=== PATIENT | male | born 1950 | race American Indian/Alaskan Native ===

== ENCOUNTER 2018-11-20 05:45 | Observation (INO) | payer MEDICARE, OTHER ==
--- NOTE | 2018-11-15 10:40 | Anesthesia Consultation ---
Anesthesia Consult and Med Hx Date of service: 11/20/18 - Airway Anesthetic Teeth Evaluation: Good ROM Head & Neck: Adequate Mental/Hyoid Distance: Adequate Mallampati Class: Class II Intubation Access Assessment: Good - Pre-Operative Health Status ASA Pre-Surgery Classification: ASA2 Proposed Anesthetic Plan: General - Pulmonary Hx Smoking: No Hx Sleep Apnea: No (DEANNE PRE SCREEN HIGH RISK) - Cardiovascular System Hx Hypertension: Yes (X 5 YRS) Hx Coronary Artery Disease: No (Had ETT 2018-OK per pt) - Central Nervous System Hx Back Pain: Yes (NECK PAIN. Had ACDF and laser spine surgery) - Endocrine Hx Renal Disease: Yes (Has one intraabdominal kidney) Hx End Stage Renal Disease: No - Other Systems Hx Cancer: Yes (HX Prostate cancer-had seeds)
[2018-11-15 10:42] LABS: Basophils # (Auto) 0.1 K/mm3 (0.0-0.1); Basophils % (Auto) 0.9 % (0.0-1.8); Eosinophils # (Auto) 0.2 K/mm3 (0.0-0.4); Eosinophils % (Auto) 3.3 % (0.0-4.3); Hematocrit 38.7 % (35.5-45.6); Lymphocytes # (Auto) 1.4 K/mm3 (1.2-5.4); Lymphocytes % (Auto) 23.3 % (13.4-35.0); Mean Corpuscular HGB Conc 34 % (32-34); Mean Corpuscular Volume 90 fl (84-94); Monocytes # (Auto) 0.6 K/mm3 (0.0-0.8); Platelet Count 222 K/mm3 (140-440); Red Blood Count 4.29 M/mm3 (3.65-5.03); Red Cell Distribution Width 15.8 % (13.2-15.2)
[2018-11-15 10:56] LABS: Alanine Aminotransferase 8 units/L (7-56); Albumin 4.1 g/dL (3.9-5); BUN/Creatinine Ratio 14; Blood Urea Nitrogen 11 mg/dL (9-20); Calcium 9.6 mg/dL (8.4-10.2); Hemolysis Index 10
[~2018-11-20 05:45] MED LIST: GENTAMICIN/NS 80 MG/100 ML 100 ML IV SCH; LACTATED RINGERS 1,000 ML IV SCH; MARCAINE 0.5% INFILTRATI ONE; NACL 0.9% IR ONE; NACL 0.9% IV ONE; NEOSPORIN GU IR ONE; VANCOMYCIN/NS 1 GM/250 ML 1 GM/250 ML BAG IV SCH
[2018-11-20] MEDS ORDERED: VERSED IV NR (06:00)
[2018-11-20] MEDS ORDERED: NEURONTIN PO NR (06:00)
[2018-11-20] MEDS ORDERED: NACL BACTERIOSTATIC INFILTRATI ONE (06:30)
[2018-11-20] MEDS ORDERED: ZOFRAN ONE (07:00)
[2018-11-20] MEDS ORDERED: MARCAINE 0.5% INFILTRATI ONE ×2 (07:14→08:07)
[2018-11-20] MEDS ORDERED: NEOSPORIN GU IR ONE ×2 (07:14→08:07)
[2018-11-20] MEDS ORDERED: NACL 0.9% 50 ML ONE (07:14)
[2018-11-20] MEDS ORDERED: DIPRIVAN 10 MG/ML IV ONE ×2 (07:28→08:21)
[2018-11-20] MEDS ORDERED: SUBLIMAZE ONE (07:28)
--- NOTE | 2018-11-20 07:44 | Anesthesia Day of Surgery ---
Anesthesia Day of Surgery - Day of Surgery Patient Examined: Yes Patient H&P Reviewed: Yes Patient is NPO: Yes
[2018-11-20] MEDS ORDERED: NACL 0.9% IR ONE (08:07)
[2018-11-20] MEDS ORDERED: NACL 0.9% IV ONE (08:07)
[2018-11-20] MEDS ORDERED: ZOFRAN IV PRN (10:03)
[2018-11-20] MEDS ORDERED: MORPHINE IV PRN (10:03)
[2018-11-20] MEDS ORDERED: NARCAN 0.4 MG/1 ML IV PRN (10:03)
--- NOTE | 2018-11-20 10:03 | Short Stay Summary ---
Short Stay Documentation Date of service: 11/20/18 - History H&P: obtained from office - Allergies and Medications Current Medications: Allergies Penicillins Allergy (Verified 11/14/18 14:46) Rash, JOINT PAIN Home Medications Medication Instructions Recorded Confirmed Last Taken Type Cholecalciferol (Vitamin D3) 2,000 unit PO DAILY 11/14/18 11/14/18 11/19/18 History [Vitamin D3 2,000 UNIT CHEW TAB] Cyanocobalamin (Vitamin B-12) 2,500 mcg PO DAILY 11/14/18 11/14/18 11/19/18 History [Vitamin B12] Ibuprofen [Motrin] 600 mg PO Q8H PRN 11/14/18 11/20/18 3 Weeks Ago History ~10/30/18 amLODIPine [Norvasc] 10 mg PO DAILY 11/14/18 11/20/18 11/20/18 05:00 History Active Medications Celecoxib (Celebrex) 200 mg PO PREOP NR Stop: 11/20/18 23:59 Last Admin: 11/20/18 07:01 Dose: 200 mg Documented by: Gabapentin (Neurontin) 300 mg PO PREOP NR Stop: 11/20/18 23:59 Last Admin: 11/20/18 07:01 Dose: 300 mg Documented by: Hydromorphone HCl (Dilaudid) 0.5 mg IV Q10MIN PRN PRN Reason: Pain , Severe (7-10) Stop: 11/20/18 16:00 Gentamicin Sulfate/Sodium Chloride (Gentamicin/Ns 80 Mg/100 Ml) 100 mls @ 200 mls/hr IV PREOP AIDAN Lactated Ringer's (Lactated Ringers) 1,000 mls @ 100 mls/hr IV DIRECT AIDAN Last Admin: 11/20/18 06:55 Dose: 100 mls/hr Documented by: Midazolam HCl (Versed) 2 mg IV PREOP NR Stop: 11/20/18 23:59 Last Admin: 11/20/18 07:01 Dose: 2 mg Documented by: - Brief post op/procedure progress note Date of procedure: 11/20/18 Pre-op diagnosis: ed Post-op diagnosis: same Procedure: ipp (21 4cm RTE---ams cx) / pharmacologic injection / scrotaplasty Anesthesia: GETA Surgeon: DONELL TOVAR Estimated blood loss: minimal Pathology: list (scrotal skin) Specimen disposition: to lab Condition: stable - Hospital course Hospital course: norco, bactrim, post op infoo on chart at bedside wrap & robert removed home after voids - Disposition Condition at discharge: Stable Short Stay Discharge Plan Follow up with: [facility] [Primary Care Provider] - 7 Days
[2018-11-20] MEDS: DILAUDID IV PRN ×2 (10:05→10:26)
--- NOTE | 2018-11-20 11:34 | Post Anesthesia Evaluation ---
- Post Anesthesia Evaluation Patient Participated: Yes Airway Patent: Yes Stable Respiratory Function: Yes Nausea/Vomiting: No Temp > 96.8F: Yes Pain Manageable: Yes Adequeate Hydration: Yes Anesthesia Complications: No
--- NOTE | 2018-11-20 13:25 | Consultation ---
History of Present Illness - Reason for Consult Consult date: 11/20/18 hypertension Requesting physician: DONELL FINCH - History of Present Illness Patient is 68 yo with hypertension,erectile dysfunction. He had penile implant done today 11/20/[address] Finch. The hospitalist service has been consulted for management of hypertension. Currently only complains of mild discomfort at surgical site. No chest pain, no shortness of breath. His primary care Physician does not come to this hospital Past History Past Medical History: hypertension Past Surgical History: Other (Lasar spinal surgery) Social history: , full code, other (Alcohol occasionally). denies: smoking Family history: diabetes Medications and Allergies Allergies Allergy/AdvReac Type Severity Reaction Status Date / Time Penicillins Allergy Rash, Verified 11/14/18 14:46 JOINT PAIN Home Medications Medication Instructions Recorded Confirmed Last Taken Type Cholecalciferol (Vitamin D3) 2,000 unit PO DAILY 11/14/18 11/14/18 11/19/18 History [Vitamin D3 2,000 UNIT CHEW TAB] Cyanocobalamin (Vitamin B-12) 2,500 mcg PO DAILY 11/14/18 11/14/18 11/19/18 History [Vitamin B12] Ibuprofen [Motrin] 600 mg PO Q8H PRN 11/14/18 11/20/18 3 Weeks Ago History ~10/30/18 amLODIPine [Norvasc] 10 mg PO DAILY 11/14/18 11/20/18 11/20/18 05:00 History Active Meds: Active Medications Acetaminophen/Hydrocodone Bitart ([place] 5/325) 2 each PO Q6H PRN PRN Reason: Pain, Moderate (4-6) Amlodipine Besylate (Norvasc) 10 mg PO DAILY AIDAN Celecoxib (Celebrex) 200 mg PO PREOP NR Stop: 11/20/18 23:59 Last Admin: 11/20/18 07:01 Dose: 200 mg Documented by: Cholecalciferol (Vitamin D3) 2,000 unit PO DAILY AIDAN Cyanocobalamin (Vitamin B-12) 2,500 mcg PO QDAY AIDAN Gabapentin (Neurontin) 300 mg PO PREOP NR Stop: 11/20/18 23:59 Last Admin: 11/20/18 07:01 Dose: 300 mg Documented by: Hydromorphone HCl (Dilaudid) 0.5 mg IV Q10MIN PRN PRN Reason: Pain , Severe (7-10) Stop: 11/20/18 16:00 Last Admin: 11/20/18 10:26 Dose: 0.5 mg Documented by: Gentamicin Sulfate/Sodium Chloride (Gentamicin/Ns 80 Mg/100 Ml) 100 mls @ 200 mls/hr IV PREOP AIDAN Lactated Ringer's (Lactated Ringers) 1,000 mls @ 100 mls/hr IV DIRECT AIDAN Last Admin: 11/20/18 06:55 Dose: 100 mls/hr Documented by: Sodium Chloride (Nacl 0.45% 1000 Ml) 1,000 mls @ 100 mls/hr IV DIRECT AIDAN Vancomycin HCl (Vancomycin/Ns 1 Gm/250 Ml) 1 gm in 250 mls @ 167.007 mls/hr IV Q12H AIDAN Stop: 11/20/18 20:30 Midazolam HCl (Versed) 2 mg IV PREOP NR Stop: 11/20/18 23:59 Last Admin: 11/20/18 07:01 Dose: 2 mg Documented by: Morphine Sulfate (Morphine) 2 mg IV Q4H PRN PRN Reason: Pain, Moderate (4-6) Naloxone HCl (Narcan 0.4 Mg/1 Ml) 0.1 mg IV Q2MIN PRN PRN Reason: Res Rate </= 8 or 02 SAT < 92% Ondansetron HCl (Zofran) 4 mg IV Q8H PRN PRN Reason: N/V unrelieved by Reglan Review of Systems All systems: negative (No fever, No chest pain, No SOB. All other systems reviewed and are negative) Exam - Physical Exam Narrative exam: Gen: Not in acute distress, lying in bed HEENT: Normocephalic, atraumatic Neck: supple, no JVD Heart: S1 and S2 reg, no murmurs, rubs or gallop Lungs: Clear to auscultation, no wheeze Abd: soft, non tender, non distended, normal BS, Ext: No edema, no clubbing, no cyanosis Neuro: Awake,alert, Oriented X 3. No focal neuro signs : Dressing over penis Psych: normal mood - Constitutional Vitals: Temp Pulse Resp BP Pulse Ox 97.8 F 67 14 150/81 97 11/20/18 11:08 11/20/18 11:08 11/20/18 11:08 11/20/18 11:08 11/20/18 11:08 Results - Labs CBC & Chem 7: 11/15/18 10:15 11/15/18 10:15 Assessment and Plan Erectile dysfunction s/p penile implant today 11/20/[address] Finch Admitted to surgical floor Urology attending Hypertension resume norvasc 10mg po daily BP borderline high Will monitor DVT prophylaxis SCds only because recent surgery Poss dc home tomorrow as per Urology Thanks for consulting us. Will follow.
--- NOTE | 2018-11-20 17:56 | Operative Report ---
PREOPERATIVE DIAGNOSIS: Erectile dysfunction. POSTOPERATIVE DIAGNOSES: Erectile dysfunction, redundant scrotal skin. PROCEDURE: Insertion of inflatable penile prosthesis (AMS CX 21 cm +4 cm rear tip cook chili), scrotoplasty, intracorporal penile injection of pharmacologic agent. SURGEON: Mariano Finch MD [employer] OPERATOR HELPER: Danny Rivera. ANESTHESIA: General. ESTIMATED BLOOD LOSS: Minimal. FLUIDS: Crystalloid. COMPLICATIONS: No complications. INDICATIONS: This patient is a 68-year-old gentleman seen in the office for refractory erectile dysfunction. He is status post radiation therapy for prostate cancer by Isaac in 2013. He has tried several oral medications with no improvement of his symptoms. We discussed options. He agreed to proceed with surgical intervention. Risks, benefits, and complications were explained. DESCRIPTION OF PROCEDURE: The patient was taken to the operative suite, placed in a supine position. After adequate general anesthesia, he was prepped and draped in a sterile fashion. Fields catheter was placed on the operative field. Danny Rivera was present throughout the procedure to assist at the bedside for surgical dissection. A 0.25% Marcaine was injected into the corporal body. No obvious plaque could be appreciated or curvature. A transscrotal incision was made with the Bovie. Sharp dissection was taken down to the corporal bodies. A 2-0 Vicryl stay sutures were placed without difficulty. Metal [place] retractor was used for exposure. Corporotomies were made, gentle dilation with John and the measuring tool. Measurements revealed a total of 25 cm bilaterally; therefore, a 21 cm AMS CX device with 4 cm rear tip extenders were prepped. A 100 mL momentary squeeze reservoir was prepped and placed into the retropubic space via the right external ring. It was inflated to 100 mL, minimal back pressure. The cylinders were prepped and placed in the corporal bodies with the aid of the Randal and Scooby needle. Corporotomies were closed with 2-0 Vicryl in a running fashion. The device was inflated with an excellent result. The patient did have some scarring on the left distal corporal body. Multiple attempts to try to inflate to void to dilate more were unsuccessful; however, he did have an excellent cosmetic appearance. The reservoir and pump was connected with the quick click connection system, cycled again excellent result. The reservoir was placed in the dependent portion of the scrotum. A 2-0 Vicryl pursestring and a running pursestring on the dartos layer was used to close the skin and was used to close the dartos layer as well as secure the pump in the dependent portion of the scrotum. Redundant scrotal skin was excised. Skin was then closed with 3-0 Vicryl in interrupted fashion. Collodion and Xeroform gauze was placed on the incision as well as a Mummy wrap around the penis and scrotum. The drapes were removed. The penis was taped to the abdomen. The patient tolerated the procedure well and was extubated and taken to recovery room in stable condition. He will be observed overnight and go home on Bactrim and Merrillan. JOB# [id number] YANA/JACKELYN
[2018-11-20] MEDS: NACL 0.45% 1000 ML 1,000 ML IV SCH (18:24)
[2018-11-20] MEDS ORDERED: VANCOMYCIN/NS 1 GM/250 ML 1 GM/250 ML BAG IV SCH (19:00)
[2018-11-20] MEDS: NORCO 5/325 PO PRN (21:28)
[2018-11-21] MEDS: NACL 0.45% 1000 ML 1,000 ML IV SCH (06:37)
[2018-11-21] MEDS: NORCO 5/325 PO PRN (06:41)
[2018-11-21 07:52] VITALS: BP 142/77
[2018-11-21] MEDS ORDERED: VITAMIN B-12 PO SCH (10:00)
[2018-11-21] MEDS ORDERED: VITAMIN D3 PO SCH (10:00)
[2018-11-21] MEDS ORDERED: NON-FORMULARY (Cyanocobalamin (Vitamin B-12) [Vitamin B12] 2,500 MCG) PO SCH (10:00)
[2018-11-21] MEDS ORDERED: [UNRECOGNIZED DRUG - OTHER] PO SCH (10:00)
[2018-11-21] MEDS ORDERED: NORVASC PO SCH (10:00)
[2018-11-21] MEDS ORDERED: CHOLECALCIFEROL 2000 UNIT PO SCH (10:00)
== END 2018-11-21 11:00 | disposition home or self-care (01) ==
LOC: OR 05:45 → 3B-SURG 10:03
PROVIDERS: ADMIT Urology; ATTEND Urology
DX: N52.9 Male erectile dysfunction, unspecified (principal)
CPT/HCPCS: 36415; 54401; 80053; 85025; 88305; C1813; G0378; J1170; J1580; J2250; J2270; J2405; J2704; J3010; J3370; J7030; J7120; 96365; 96366; 96375